=== PATIENT | female | born 1970 | race Caucasian/White ===

== ENCOUNTER → 2016-04-19 | Outpatient (CLI) | payer OTHER ==
[~2016-04-19] MED LIST: LEVO125T4 PO; OMEP20CA9 PO; ONDA4TAB7 SL; ZLF/100 PO
[2016-04-19 18:18] LABS: BASO % 0.3 %; BASO ABS # 0.04 K/uL (0-0.2); COMPLETE YES; EOS % 1.8 %; HEMATOCRIT 42.6 % (37-47); IG% 0.5 %; LYMPH % 24.8 %; LYMPH ABS # 3.68 K/uL (1.2-3.4); MEAN CELL VOLUME 86.2 fL (80-100); MEAN CORPUSCULAR HEMOGLOBIN 28.7 pg (25-34); MEAN CORPUSCULAR HGB CONC 33.3 g/dl (32-36); MEAN PLATELET VOLUME 11.8 fL (7.4-10.4); MONO % 4.6 %; PLATELET COUNT 303 K/uL (130-400); RED BLOOD COUNT 4.94 M/uL (4.2-5.4); WHITE BLOOD COUNT 14.84 K/uL (4.8-10.8)
[2016-04-19 18:29] LABS: ALT/SGPT 35 U/L (12-78); BLOOD UREA NITROGEN 13 mg/dl (7-18); BUN/CREATININE RATIO 14.2 (10-20); C-REACTIVE PROTEIN 0.35 mg/dl (0-0.29); CALCIUM 8.8 mg/dl (8.5-10.1); CARBON DIOXIDE 23 mmol/L (21-32); CHLORIDE 108 mmol/L (98-107); CREATININE 0.88 mg/dl (0.60-1.20); GLUCOSE 91 mg/dl (70-99); POTASSIUM 4.2 mmol/L (3.5-5.1); SODIUM 140 mmol/L (136-145)
[2016-04-19 18:39] LABS: ALB/GLOB RATIO 1.1 (0.9-2); ALKALINE PHOSPHATASE 78 U/L (45-117); AST/SGOT 20 U/L (15-37); RHEUMATOID FACTOR < 10.0 U/mL (0-15)
[2016-04-19 19:49] LABS: LYME DISEASE AB IGG NEG (NEG); LYME DISEASE AB IGM NEG (NEG)
[2016-04-24 12:52] LABS: ANA TITER 1:40 TITER (<1:40)
== END | disposition home or self-care (01) ==
LOC: C.LABBFT 12:56
PROVIDERS: ATTEND Internal Medicine
DX: M25.50 Pain in unspecified joint (principal)

== ENCOUNTER → 2016-05-02 | Outpatient (CLI) | payer OTHER ==
[2016-05-02 17:29] LABS: BASO % 0.3 %; BASO ABS # 0.05 K/uL (0-0.2); COMPLETE YES; EOS % 1.7 %; HEMATOCRIT 41.1 % (37-47); IG% 0.3 %; LYMPH % 25.6 %; LYMPH ABS # 3.82 K/uL (1.2-3.4); MEAN CELL VOLUME 86.5 fL (80-100); MEAN CORPUSCULAR HEMOGLOBIN 29.9 pg (25-34); MEAN CORPUSCULAR HGB CONC 34.5 g/dl (32-36); MEAN PLATELET VOLUME 11.9 fL (7.4-10.4); MONO % 5.5 %; NEUT % 66.6 %; PLATELET COUNT 309 K/uL (130-400); RED BLOOD COUNT 4.75 M/uL (4.2-5.4)
[2016-05-02 18:10] LABS: URINE APPEARANCE CLEAR (CLEAR); URINE BILIRUBIN NEG (NEG); URINE COLOR DK YELLOW; URINE EPITHELIAL CELL AUTO >30 /lpf (0-5); URINE NITRITE NEG (NEG); URINE SPECIFIC GRAVITY 1.024 (1.000-1.030); UROBILINOGEN NEG (NEG)
[2016-05-02 18:14] LABS: MANUAL MICROSCOPIC REQUIRED? NO; REVIEW REQ? NO
== END | disposition home or self-care (01) ==
LOC: C.LABBFT 14:47
PROVIDERS: ATTEND Internal Medicine
DX: R79.9 Abnormal finding of blood chemistry, unspecified (principal)

== ENCOUNTER → 2016-05-07 | Outpatient (CLI) | payer OTHER ==
[2016-05-07 12:50] LABS: BASO % 0.2 %; BASO ABS # 0.03 K/uL (0-0.2); EOS % 1.9 %; HEMATOCRIT 44.1 % (37-47); IG% 0.4 %; LYMPH % 19.6 %; LYMPH ABS # 2.63 K/uL (1.2-3.4); MEAN CELL VOLUME 86.5 fL (80-100); MEAN CORPUSCULAR HEMOGLOBIN 28.6 pg (25-34); MEAN CORPUSCULAR HGB CONC 33.1 g/dl (32-36); MEAN PLATELET VOLUME 11.5 fL (7.4-10.4); MONO % 6.3 %; NEUT % 71.6 %; PLATELET COUNT 279 K/uL (130-400)
[2016-05-07 13:25] LABS: COMPLETE YES
== END | disposition home or self-care (01) ==
LOC: C.LABBFT 07:36
PROVIDERS: ATTEND Internal Medicine
DX: D72.829 Elevated white blood cell count, unspecified (principal)

== ENCOUNTER → 2016-06-07 | Outpatient (CLI) | payer OTHER ==
[2016-06-07 17:17] LABS: BASO % 0.3 %; BASO ABS # 0.04 K/uL (0-0.2); COMPLETE YES; HEMATOCRIT 42.8 % (37-47); IG% 0.3 %; LYMPH ABS # 3.31 K/uL (1.2-3.4); MEAN CELL VOLUME 85.8 fL (80-100); MEAN CORPUSCULAR HEMOGLOBIN 29.5 pg (25-34); MEAN CORPUSCULAR HGB CONC 34.3 g/dl (32-36); MEAN PLATELET VOLUME 11.7 fL (7.4-10.4); MONO % 6.4 %; PLATELET COUNT 317 K/uL (130-400); RED BLOOD COUNT 4.99 M/uL (4.2-5.4); WHITE BLOOD COUNT 12.72 K/uL (4.8-10.8)
[2016-06-07 17:38] LABS: THYROID STIMULATING HORMONE 5.15 uIu/ml (0.300-4.500)
== END | disposition home or self-care (01) ==
LOC: C.LABBFT 12:47
PROVIDERS: ATTEND Internal Medicine
DX: R79.9 Abnormal finding of blood chemistry, unspecified (principal); E03.9 Hypothyroidism, unspecified

== ENCOUNTER 2017-02-26 19:28 | Emergency (ER) | payer OTHER ==
[~2017-02-26] VITALS: Ht 167.6 cm; Wt 91.2 kg
[~2017-02-26 19:28] MED LIST changes: -LEVO125T4 PO; +LEVO125T5 PO; -OMEP20CA9 PO; -ZLF/100 PO
[2017-02-26 19:32] VITALS: TEMP 36.6; Ht 167.6 cm; Wt 91.2 kg
--- NOTE | 2017-02-26 19:54 | EMERGENCY ROOM VISIT NOTE ---
History Report prepared by Anita: Joaquin Cisse Under the Supervision of: Dr. Dami Alvarenga M.D. First contact with patient: 19:37 Chief Complaint: FLANK PAIN Stated Complaint: BACK PAIN, RED HAND NUMBNESS History of Present Illness The patient is a 47 year old female who presents to the Emergency Room with complaints of intermittent left sided flank pain that began this morning. She has a history of hypothyroid disease and is not currently taking medications for it. She is currently on Zoloft. Last week, the patient was started on an antibiotic and Prednisone which she finished yesterday morning for sinus congestion and a cough. At that time, she had some flank pain, but thought it was from her not being able to move her bowels secondary to her medications. Her pain eventually went away until this morning. Although she is now able to move her bowels, her pain still persisted. Along with this, she noticed that her right hand is discolored. She denies any trauma or injury to any area of her body. She denies any fevers, rhinorrhea, post nasal drip sore throat, chest pain, shortness of breath, vomiting, diarrhea, numbness or weakness to her legs , hand pain, or pain associated with breathing. She notes that she has some bilateral shoulder and arm weakness and aches. She has chronic headaches. She denies any chance for and states she has a Mirena inserted. She has been keeping up with her fluids. Source of History: patient Onset: this morning Position: other (Left flank) Symptom Intensity: moderate Quality: ache Timing: intermittent Associated Symptoms: + headache, + cough, + weakness (bilateral shoulder and arm), No fevers, No chest pain, No SOB, No vomiting, No abdominal pain, No diarrhea, No urinary symptoms Note: She has some right hand discoloration and numbness. She denies any trauma or injury. Review of Systems See HPI for pertinent positives & negatives. A total of 10 systems reviewed and were otherwise negative. Past Medical & Surgical Medical Problems: (1) Cervical cancer Old medical records were reviewed. Nurse's notes were reviewed and I agree with. Family History Cancer Diabetes mellitus Heart disease Hypertension Social History Smoking Status: Never Smoker Alcohol Use: occasionally Drug Use: none Marital Status: single Occupation Status: employed Current/Historical Medications Scheduled Cholecalciferol (Vitamin D3), 2 CAP PO DAILY Cyanocobalamin (Vitamin B-12), 1 TAB PO DAILY Levothyroxine Sodium (Synthroid), 1 TAB PO DAILY Omeprazole (Prilosec), 20 MG PO DAILY Sertraline HCl (Sertraline HCl), 100 MG PO DAILY Scheduled PRN Triamcinolone Acetonide (Nasal (Nasacort Allergy 24Hr), 1 SPRAY NA DAILY PRN for Nasal Congestion Allergies Coded Allergies: No Known Allergies (Unverified , 03/02/06) Physical Exam Vital Signs Date Time Temp Pulse Resp B/P (MAP) Pulse Ox O2 Delivery O2 Flow Rate FiO2 02/26/17 22:41 70 16 156/101 97 02/26/17 22:35 70 16 156/101 97 Room Air 02/26/17 21:24 75 16 160/100 94 Room Air 02/26/17 20:55 75 18 149/94 93 Room Air 02/26/17 19:32 36.6 83 20 177/98 95 Room Air Physical Exam General: Non-ill appearing middle aged female in no acute distress. HEENT: Normal cephalic atraumatic. Pupils are equal round and reactive to light. Extraocular movements are intact. Oropharynx is pink with moist mucous membranes. No swelling of the mouth lips or tongue. Neck: Supple with a midline trachea. No meningeal signs or stiffness, no JVD or bruits. No Stridor. Chest: Clear to auscultation bilaterally. No wheezes or rhonchi. No increased work of breathing. Heart: regular rate and rhythm. Abdomen: Soft nontender, nondistended without rebound guarding or rigidity. Extremities: There is a bruise to the dorsal aspect of the right hand. No redness or warmth. Full ROM. No numbness or weakness. Good capillary refill. No calf tenderness or assymetry Spine/Back. Tenderness to palpation in the left lower rib area. No rash. Skin: Good turgor without rashes. Neurologic exam: Cranial nerves two through 12 are intact. Motor and sensation are intact and symmetrical throughout. Medical Decision & Procedures ER Provider Diagnostic Interpretation: Radiology results as stated below per my review and radiologist interpretation: CHEST ONE VIEW PORTABLE HISTORY: 47 years-old Female CHEST PAIN acute atypical chest pain COMPARISON: None available TECHNIQUE: Portable upright AP view of the chest FINDINGS: Cardiomediastinal and hilar silhouettes are within normal limits. No pneumothorax, pleural effusion, focal airspace consolidation or overt pulmonary edema. Bones of the chest appear grossly intact. Dextroscoliosis of the thoracic spine. IMPRESSION: No acute process. The above report was generated using voice recognition software. It may contain grammatical, syntax or spelling errors. Electronically signed by: Jay Thayer M.D. 02/26/2017 8:59 PM Dictated Date/Time: 02/26/2017 8:58 PM ABD/PELVIS WITHOUT FOR STONE HISTORY: 47 years-old Female eval for left flank pain acute left-sided flank pain COMPARISON: Lumbar spine radiographs 10/28/2007 TECHNIQUE: Multiple axial CT images of the abdomen and pelvis were obtained without contrast. A dose lowering technique was used consistent with the principals of [place]. FINDINGS: Groundglass opacities of the lung bases are noted with pleural-based 3 mm nodules right lung base seen on image 27 series 3, likely benign. These findings suggest atelectasis and/or mild pneumonitis. No pneumatosis or pneumoperitoneum. Imaged inferior cardiac chambers are unremarkable with trace pericardial effusion. Gallbladder is contracted. The liver, spleen, and pancreas are unremarkable. There are peripheral calcifications noted involving the bilateral adrenal glands. 1.3 x 1.0 cm lesion of the left adrenal gland demonstrating macroscopic fat suggests adrenal myolipoma, image 86 series 3. Low attenuating lesion of the superior pole right kidney, 4.9 x 4.3 cm suggests simple renal cyst. Bilateral kidneys and ureters are otherwise unremarkable. No renal calculi or hydronephrosis. The urinary bladder is within normal limits. Intrauterine device is noted within the central uterus which appears to be in satisfactory positioning. 1.7 cm cystic structure of the left adnexum suggests dominant follicle. There is mild atherosclerosis of the aorta. No pathologic adenopathy. Small duodenal diverticulum. No bowel obstruction or focal bowel wall thickening identified. Minimal colonic diverticulosis without diverticulitis. Normal appendix. There are multiple small ventral abdominal wall fat filled hernias which are supraumbilical and periumbilical, largest of which demonstrates diastases of approximately 1.5 cm. Diastases recti. Soft tissues are unremarkable. Mild degenerative changes of the SI joints bilaterally. Multilevel intervertebral disc space narrowing and facet arthropathy of the lower lumbar spine. IMPRESSION: 1. No acute intra-abdominal or intrapelvic abnormality identified, specifically no renal calculi or hydronephrosis. 2. Normal appendix. 3. Symmetric peripheral calcification of the bilateral adrenal glands suggests prior adrenal hemorrhage or infection. 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 4. Minimal colonic diverticulosis without diverticulitis. 5. IUD in situ. The above report was generated using voice recognition software. It may contain grammatical, syntax or spelling errors. Electronically signed by: Jay Thayer M.D. 02/26/2017 9:22 PM Dictated Date/Time: 02/26/2017 9:12 PM Laboratory Results 02/26/17 19:55 Red Blood Count 4.94, Mean Corpuscular Volume 85.0, Mean Corpuscular Hemoglobin 29.4, Mean Corpuscular Hemoglobin Concent 34.5, Mean Platelet Volume 10.0, Neutrophils (%) (Auto) 67.7, Lymphocytes (%) (Auto) 24.4, Monocytes (%) (Auto) 5.0, Eosinophils (%) (Auto) 1.9, Basophils (%) (Auto) 0.4, Neutrophils # (Auto) 12.11, Lymphocytes # (Auto) 4.37, Monocytes # (Auto) 0.90, Eosinophils # (Auto) 0.34, Basophils # (Auto) 0.08 02/26/17 19:55 Test 02/26/17 19:55 White Blood Count 17.91 K/uL (4.8-10.8) Red Blood Count 4.94 M/uL (4.2-5.4) Hemoglobin 14.5 g/dL (12.0-16.0) Hematocrit 42.0 % (37-47) Mean Corpuscular Volume 85.0 fL (80-100) Mean Corpuscular Hemoglobin 29.4 pg (25-34) Mean Corpuscular Hemoglobin Concent 34.5 g/dl (32-36) Platelet Count 298 K/uL (130-400) Mean Platelet Volume 10.0 fL (7.4-10.4) Neutrophils (%) (Auto) 67.7 % Lymphocytes (%) (Auto) 24.4 % Monocytes (%) (Auto) 5.0 % Eosinophils (%) (Auto) 1.9 % Basophils (%) (Auto) 0.4 % Neutrophils # (Auto) 12.11 K/uL (1.4-6.5) Lymphocytes # (Auto) 4.37 K/uL (1.2-3.4) Monocytes # (Auto) 0.90 K/uL (0.11-0.59) Eosinophils # (Auto) 0.34 K/uL (0-0.5) Basophils # (Auto) 0.08 K/uL (0-0.2) RDW Standard Deviation 42.3 fL (36.4-46.3) RDW Coefficient of Variation 13.8 % (11.5-14.5) Immature Granulocyte % (Auto) 0.6 % Immature Granulocyte # (Auto) 0.11 K/uL (0.00-0.02) Prothrombin Time 9.9 SECONDS (9.0-12.0) Prothromb Time International Ratio 0.9 (0.9-1.1) Activated Partial Thromboplast Time 28.1 SECONDS (21.0-31.0) Partial Thromboplastin Ratio 1.1 D-Dimer 340 ug/L FEU (0-500) Urine Color YELLOW Urine Appearance CLEAR (CLEAR) Urine pH 5.0 (4.5-7.5) Urine Specific [place] 1.024 (1.000-1.030) Urine Protein NEG (NEG) Urine Glucose (UA) NEG (NEG) Urine Ketones NEG (NEG) Urine Occult Blood NEG (NEG) Urine Nitrite NEG (NEG) Urine Bilirubin NEG (NEG) Urine Urobilinogen NEG (NEG) Urine Leukocyte Esterase TRACE (NEG) Urine WBC (Auto) 1-5 /hpf (0-5) Urine RBC (Auto) 0-4 /hpf (0-4) Urine Hyaline Casts (Auto) 1-5 /lpf (0-5) Urine Epithelial Cells (Auto) >30 /lpf (0-5) Urine Bacteria (Auto) NEG (NEG) Urine Test NEG (NEG) Anion Gap 8.0 mmol/L (3-11) Est Creatinine Clear Calc Drug Dose 59.7 ml/min Estimated GFR () 55.7 Estimated GFR (Non- 48.0 BUN/Creatinine Ratio 15.7 (10-20) Calcium Level 9.0 mg/dl (8.5-10.1) Total Bilirubin 0.5 mg/dl (0.2-1) Direct Bilirubin < 0.1 mg/dl (0-0.2) Aspartate Amino Transf (AST/SGOT) 32 U/L (15-37) Alanine Aminotransferase (ALT/SGPT) 41 U/L (12-78) Alkaline Phosphatase 88 U/L (45-117) Total Creatine Kinase 771 U/L (26-192) Creatine Kinase MB 10.8 ng/ml (0.5-3.6) Creatine Kinase MB Ratio 1.4 (0-3.0) Total Protein 7.8 gm/dl (6.4-8.2) Albumin 3.9 gm/dl (3.4-5.0) Lipase 232 U/L (73-393) Thyroid Stimulating Hormone (TSH) 246.000 uIu/ml (0.300-4.500) Laboratory studies as stated above per my review. Medications Administered Medications (Trade) Dose Ordered Sig/Red Route Start Time Stop Time Status Last Admin Dose Admin Levothyroxine Sodium (Synthroid Tab) 150 mcg ONE STAT PO 02/26/17 22:18 02/26/17 22:20 DC 02/26/17 22:35 150 MCG ECG Indication: back/shoulder pain Rate (beats per minute): 77 Rhythm: normal sinus Findings: other (Nonspecific T-wave abnormalities, low voltage) Comparison ECG Date: no prior available ED Course 1936: Past medical records reviewed. The patient was evaluated in room C1, and a complete history and physical examination were performed. 2055: I reassessed the patient at this time. She is resting comfortably. I ordered a CT abdomen for a kidney stone rule out. 2102: She is now at radiology. 2206: I spoke with Lyn Jernigan NP of Endocrinology at this time. She will speak with Dr. Magana of Endocrinology who will call me back. 2210: I spoke with Dr. Magana at this time about the patient. They recommended starting the patient back on her hypothyroid medications. 2220: Upon reevaluation, the patient is resting. I discussed the results and treatment plan with her. She verbalized agreement of the treatment plan. The patient was discharged home. Medical Decision Differentials include, but are not limited to; musculoskeletal pain, kidney stone, infection, PE, pneumonia, UTI, or hematologic process. This patient comes in as described above. she has several complaints. she has a bruise on her right hand without any injury does not cause any pain weakness. She also has pain along her left posterior ribs without rash. She has had some sinus type symptoms. No fever or chills. She's had a mild cough and congestion. IV access was established and she obtained a chest x-ray as well as also blood testing and urinalysis and culture. She was reassessed frequently. Her d-dimer was within normal limits and in the low pretest probability setting make highly unlikely. Chest x-ray does not show any acute findings. EKG does not show any definite ischemic changes. White count is elevated however this may be due to the recent prednisone. She's had nothing else to suggest infection. The rest of her CBC was unremarkable. The bruise on her hand may also be from prednisone. She has no numbness or weakness or anything to suggest compartment syndrome or infection in the hand. Urinalysis was obtained does not suggest UTI or pyelonephritis. Clinically she does not have findings suggest pyelonephritis.. Her blood work came back significantly abnormal for a TSH is markedly elevated at 246. Her CK is mildly elevated and a creatinine and BUN mildly elevated which could go along with severe hypothyroidism. Also her EKG is low voltage also to go along with this. She appears to be stable otherwise., She has nothing to suggest that she has myxedema coma or any unstable vital signs. Given the elevation of TSH I did discuss the case with Dr. Santamaria, and he recommended starting her back on her Synthroid. She was at 150 g doctor Hina said for the first week she could take it every other day and then once a day. I explained this to the patient She should follow-up with her doctor this week for recheck and drink plenty of fluids. She should return if : worsening of symptoms, any new problems or concerns. The patient and her was happy with plan and she was discharged Medication Reconcilliation Current Medication List: was personally reviewed by me Blood Pressure Screening Patient's blood pressure: Elevated blood pressure Blood pressure disposition: Referred to PCP Consults Time Called: 2204 Consulting Physician: Lyn Jernigan APPOINTMENT CLERK - Endocrinology Returned Call: [phone] We discussed the patient's case. She will speak with Dr. Magana of Endocrinology who will call me back. Additional Consults: Time Called: 2210 Consulted Physician: Dr. Magana - Endocrinology Returned Call: 2210 Additional Comments: We discussed the patient's case. He believes that it is her hypothyroid disease and recommends that she be restarted on her medications. Impression Primary Impression: Weakness Additional Impressions: Hypothyroid Ecchymosis Scribe Attestation The scribe's documentation has been prepared under my direction and personally reviewed by me in its entirety. I confirm that the note above accurately reflects all work, treatment, procedures, and medical decision making performed by me. Departure Information Dispostion Home / Self-Care Prescriptions Levothyroxine Sodium (SYNTHROID) 150 Mcg Tab 1 TAB PO DAILY for 30 Days, #30 TAB 0 Refills Prov: Dami Alvarenga M.D. 02/26/17 Referrals Everett Coates M.D. (PCP) Forms HOME CARE DOCUMENTATION FORM, IMPORTANT VISIT INFORMATION Patient Instructions My [facility] Additional Instructions Rest. Restart your Synthroid 150 mcg once a day. For the first week take it every other day Return to the ER if: Worsening of symptoms, shortness of breath, fever or chills , any new problems or concerns Follow-up with your doctor this week for recheck Problem Qualifiers
[2017-02-26] MEDS ORDERED: TRIA1SPR4 (20:00)
[2017-02-26] MEDS ORDERED: CYAN50TA2 PO (20:00)
[2017-02-26] MEDS ORDERED: CHOL2000 PO (20:00)
[2017-02-26 20:12] LABS: BASO % 0.4 %; BASO ABS # 0.08 K/uL (0-0.2); COMPLETE YES; EOS % 1.9 %; IG% 0.6 %; LYMPH % 24.4 %; LYMPH ABS # 4.37 K/uL (1.2-3.4); MEAN CORPUSCULAR HEMOGLOBIN 29.4 pg (25-34); MEAN CORPUSCULAR HGB CONC 34.5 g/dl (32-36); NEUT % 67.7 %; PLATELET COUNT 298 K/uL (130-400); RED BLOOD COUNT 4.94 M/uL (4.2-5.4); WHITE BLOOD COUNT 17.91 K/uL (4.8-10.8)
[2017-02-26 20:22] LABS: INR 0.9 (0.9-1.1); PARTIAL THROMBOPLASTIN RATIO 1.1; PROTHROMBIN TIME (PATIENT) 9.9 SECONDS (9.0-12.0)
[2017-02-26 20:33] LABS: URINE APPEARANCE CLEAR (CLEAR); URINE BILIRUBIN NEG (NEG); URINE COLOR YELLOW; URINE EPITHELIAL CELL AUTO >30 /lpf (0-5); URINE NITRITE NEG (NEG); URINE SPECIFIC GRAVITY 1.024 (1.000-1.030); UROBILINOGEN NEG (NEG)
[2017-02-26 20:40] LABS: MANUAL MICROSCOPIC REQUIRED? NO; REVIEW REQ? NO
--- NOTE | 2017-02-26 21:01 | DIAGNOSTIC IMAGING REPORT ---
CHEST ONE VIEW PORTABLE HISTORY: 47 years-old Female CHEST PAIN acute atypical chest pain COMPARISON: None available TECHNIQUE: Portable upright AP view of the chest FINDINGS: Cardiomediastinal and hilar silhouettes are within normal limits. No pneumothorax, pleural effusion, focal airspace consolidation or overt pulmonary edema. Bones of the chest appear grossly intact. Dextroscoliosis of the thoracic spine. IMPRESSION: No acute process. The above report was generated using voice recognition software. It may contain grammatical, syntax or spelling errors. Electronically signed by: Jay Thayer M.D. 02/26/2017 8:59 PM Dictated Date/Time: 02/26/2017 8:58 PM
--- NOTE | 2017-02-26 21:23 | DIAGNOSTIC IMAGING REPORT ---
ABD/PELVIS WITHOUT FOR STONE HISTORY: 47 years-old Female eval for left flank pain acute left-sided flank pain COMPARISON: Lumbar spine radiographs 10/28/2007 TECHNIQUE: Multiple axial CT images of the abdomen and pelvis were obtained without contrast. A dose lowering technique was used consistent with the principals of [place]. FINDINGS: Groundglass opacities of the lung bases are noted with pleural-based 3 mm nodules right lung base seen on image 27 series 3, likely benign. These findings suggest atelectasis and/or mild pneumonitis. No pneumatosis or pneumoperitoneum. Imaged inferior cardiac chambers are unremarkable with trace pericardial effusion. Gallbladder is contracted. The liver, spleen, and pancreas are unremarkable. There are peripheral calcifications noted involving the bilateral adrenal glands. 1.3 x 1.0 cm lesion of the left adrenal gland demonstrating macroscopic fat suggests adrenal myolipoma, image 86 series 3. Low attenuating lesion of the superior pole right kidney, 4.9 x 4.3 cm suggests simple renal cyst. Bilateral kidneys and ureters are otherwise unremarkable. No renal calculi or hydronephrosis. The urinary bladder is within normal limits. Intrauterine device is noted within the central uterus which appears to be in satisfactory positioning. 1.7 cm cystic structure of the left adnexum suggests dominant follicle. There is mild atherosclerosis of the aorta. No pathologic adenopathy. Small duodenal diverticulum. No bowel obstruction or focal bowel wall thickening identified. Minimal colonic diverticulosis without diverticulitis. Normal appendix. There are multiple small ventral abdominal wall fat filled hernias which are supraumbilical and periumbilical, largest of which demonstrates diastases of approximately 1.5 cm. Diastases recti. Soft tissues are unremarkable. Mild degenerative changes of the SI joints bilaterally. Multilevel intervertebral disc space narrowing and facet arthropathy of the lower lumbar spine. IMPRESSION: 1. No acute intra-abdominal or intrapelvic abnormality identified, specifically no renal calculi or hydronephrosis. 2. Normal appendix. 3. Symmetric peripheral calcification of the bilateral adrenal glands suggests prior adrenal hemorrhage or infection. 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 4. Minimal colonic diverticulosis without diverticulitis. 5. IUD in situ. The above report was generated using voice recognition software. It may contain grammatical, syntax or spelling errors. Electronically signed by: Jay Thayer M.D. 02/26/2017 9:22 PM Dictated Date/Time: 02/26/2017 9:12 PM
[2017-02-26 21:29] LABS: ALKALINE PHOSPHATASE 88 U/L (45-117); ALT/SGPT 41 U/L (12-78); BLOOD UREA NITROGEN 21 mg/dl (7-18); BUN/CREATININE RATIO 15.7 (10-20); CARBON DIOXIDE 27 mmol/L (21-32); CHLORIDE 102 mmol/L (98-107); CKMB/CK RATIO 1.4 (0-3.0); CREATININE 1.31 mg/dl (0.60-1.20); GLUCOSE 89 mg/dl (70-99)
[2017-02-26 21:36] LABS: POTASSIUM 3.3 mmol/L (3.5-5.1); SODIUM 137 mmol/L (136-145)
[2017-02-26 21:44] LABS: AST/SGOT 32 U/L (15-37)
[2017-02-26] MEDS ORDERED: OMEP20CA9 PO (21:53)
[2017-02-26] MEDS ORDERED: ZLF/100 PO (21:53)
[2017-02-26] MEDS ORDERED: LEVO150T PO (22:17)
[2017-02-26] MEDS ORDERED: LEVOTHYROXINE 150 MCG TAB PO STA (22:18)
[2017-02-26 22:41] VITALS: BP 156/101; PULSE 70; O2SAT 97
== END 2017-02-26 22:41 | disposition home or self-care (01) ==
LOC: C.EDB 19:29 → C.EDC 22:41
DX: E03.9 Hypothyroidism, unspecified (principal); R53.1 Weakness; R58 Hemorrhage, not elsewhere classified; Z85.41 Personal history of malignant neoplasm of cervix uteri; Z80.9 Family history of malignant neoplasm, unspecified; Z83.3 Family history of diabetes mellitus; Z82.49 Family history of ischemic heart disease and other diseases of the circulatory system; Z79.899 Other long term (current) drug therapy

== ENCOUNTER → 2017-03-27 | Outpatient (CLI) | payer OTHER ==
[~2017-03-27] MED LIST changes: +CHOL2000 PO; +CYAN50TA2 PO; -LEVO125T5 PO; +LEVO150T PO; +OMEP20CA9 PO; -ONDA4TAB7 SL; +TRIA1SPR4; +ZLF/100 PO
== END | disposition home or self-care (01) ==
LOC: C.LABBFT 08:51
PROVIDERS: ATTEND Nurse Practitioner
DX: E03.9 Hypothyroidism, unspecified (principal)

== ENCOUNTER 2017-04-12 15:29 | Emergency (ER) | payer OTHER ==
[~2017-04-12] VITALS: Ht 154.9 cm; Wt 90.1 kg
[2017-04-12 15:32] VITALS: TEMP 36.3; Ht 154.9 cm; Wt 90.1 kg
[2017-04-12] MEDS ORDERED: KETOROLAC TROMETHAMINE 30 MG/ML VIAL IV STA ×2 (15:45→15:52)
[2017-04-12] MEDS ORDERED: SODIUM CHLORIDE 0.9% 1000ML 1,000 ML IV ONE (15:45)
[2017-04-12] MEDS ORDERED: DEXAMETHASONE SOD INJ 4 MG/ML VIAL IV ONE (15:45)
[2017-04-12] MEDS ORDERED: PROCHLORPERAZINE 5 MG/ML 2 ML VIAL IV STA (15:45)
[2017-04-12] MEDS ORDERED: DiphenhydrAMINE HCL 50 MG/ML VIAL IV STA (15:45)
--- NOTE | 2017-04-12 15:52 | EMERGENCY ROOM VISIT NOTE ---
History First contact with patient: 15:37 Chief Complaint: HEADACHE Stated Complaint: MIGRAINED, PAIN SHOOTING ACCROSS SHOULDER History of Present Illness The patient is a 47 year old female who presents to the Emergency Room with complaints of severe migraine headache that has been intermittent for the last 4 days. The patient has tried Sudafed, Excedrin and ibuprofen with minimal relief. She describes it as a sharp, stabbing sensation. She has associated photosensitivity. She has had nausea without vomiting. No recent cough, fever , sore throat or sinus congestion. The patient has a history of migraines, however she says this one was worse. Her Synthroid was recently increased from 150 g to 200 g 2 weeks ago. She is also complaining of a sharp, stabbing sensation between her shoulder blades. She denies any shortness of breath. The history is somewhat limited as the patient is in a fair amount of pain. Review of Systems 10 system review performed and negative unless noted in HPI or below Past Medical/Surgical History Medical Problems: (1) Cervical cancer Migraines, hypothyroidism Family History Cancer Diabetes mellitus Heart disease Hypertension Social History Smoking Status: Never Smoker Alcohol Use: occasionally Drug Use: none Marital Status: single Occupation Status: employed Current/Historical Medications Scheduled Cholecalciferol (Vitamin D3), 2 CAP PO DAILY Esomeprazole Magnesium (Nexium), 20 MG PO DAILY Levothyroxine Sodium (Levothyroxine Sodium), 200 MCG PO DAILY Sertraline HCl (Sertraline HCl), 100 MG PO DAILY Scheduled PRN Triamcinolone Acetonide (Nasal (Nasacort Allergy 24Hr), 1 SPRAY NA DAILY PRN for Nasal Congestion Physical Exam Vital Signs Date Time Temp Pulse Resp B/P (MAP) Pulse Ox O2 Delivery O2 Flow Rate FiO2 04/12/17 17:11 78 18 161/99 93 Room Air 04/12/17 16:44 78 18 178/98 96 Room Air 04/12/17 16:14 80 04/12/17 15:32 36.3 74 20 206/122 94 Room Air Physical Exam GENERAL: 47-year-old female, in significant pain,, SKIN: The skin was without rashes, erythema, edema, or bruising. HEAD: Normocephalic atraumatic. EARS: External auditory canals clear, tympanic membranes pearly perez without erythema or effusion bilaterally. EYES: Pupils equal round and reactive to light and accommodation. Conjunctivae without injection, sclerae without icterus. Extraocular movements intact. MOUTH: Mucous membranes fairly dry Tonsils are not enlarged. Pharynx without erythema or exudate. Uvula midline. Airway patent. Tongue does not deviate. NECK: Supple without nuchal rigidity. No lymphadenopathy. Cervical spine is nontender. No JVD. HEART: Regular rate and rhythm without murmurs gallops or rubs. LUNGS: Clear to auscultation bilaterally without wheezes, rales or rhonchi. No accessory muscle use. ABDOMEN: Positive bowel sounds x 4.Soft, MUSCULOSKELETAL: No muscle atrophy, erythema, or edema noted. Strength 5/5 throughout. NEURO: Patient was alert and oriented to person place and time. Cerebellar function intact. Cranial nerves grossly intact. Normal sensation to touch. No focal neurological deficits. Medical Decision & Procedures ER Provider Diagnostic Interpretation: CXR IMPRESSION: 1. No acute cardiopulmonary disease. Electronically signed by: Steve Mayer M.D. 04/12/2017 5:04 PM Dictated Date/Time: 04/12/2017 5:03 PM The status of this report is Signed. Draft = Not yet reviewed or approved by Radiologist. CT head without contrast IMPRESSION: 1. No acute intracranial abnormality. Electronically signed by: Steve Mayer M.D. 04/12/2017 4:43 PM Dictated Date/Time: 04/12/2017 4:41 PM The status of this report is Signed. Draft = Not yet reviewed or approved by Radiologist. Signed = Reviewed and approved by Radiologist. <AttendingPhy></AttendingPhy> <FamilyPhy>Everett Coates M.D.</FamilyPhy > <PrimaryPhy>Everett Coates M.D.</PrimaryPhy> <UnitNumber>[id number]</ UnitNumber> <VisitNumber>[id number]</VisitNumber> <PatientName>ZION BURNS</PatientName> <DateOfBirth>1970</DateOfBirth> <Location>[facility] </Location> <ServiceDate>04/12/17</ServiceDate> <MNE>ESINDI</MNE> <OrderingPhy> Radha Fleming PA-C</OrderingPhy> <OrderingPhyMNE>f rep ord dr west</ OrderingPhyMNE> <DictatingPhyMNE>f rep dict dr west</DictatingPhyMNE> <CCListMNE> f rep ct mne</CCListMNE> <AdmittingPhyMNE>f pt admit dr west</AdmittingPhyMNE> < AttendingPhyMNE>f pt attend dr west</AttendingPhyMNE> <ConsultingPhyMNE>f pt consult dr west</ConsultingPhyMNE> <FamilyPhyMNE>f pt fam dr west</FamilyPhyMNE> <OtherPhyMNE>f pt other dr west</OtherPhyMNE> < PrimaryPhyMNE>f pt prim care dr west</PrimaryPhyMNE> <ReferringPhyMNE>f pt referring dr west</ReferringPhyMNE> Laboratory Results 04/12/17 16:06 Red Blood Count 4.81, Mean Corpuscular Volume 85.2, Mean Corpuscular Hemoglobin 29.1, Mean Corpuscular Hemoglobin Concent 34.1, Mean Platelet Volume 11.1, Neutrophils (%) (Auto) 74.1, Lymphocytes (%) (Auto) 16.9, Monocytes (%) (Auto) 6.1, Eosinophils (%) (Auto) 2.0, Basophils (%) (Auto) 0.4, Neutrophils # (Auto) 11.23, Lymphocytes # (Auto) 2.56, Monocytes # (Auto) 0.92, Eosinophils # (Auto) 0.30, Basophils # (Auto) 0.06 04/12/17 16:06 Test 04/12/17 16:06 04/12/17 17:12 04/12/17 17:58 White Blood Count 15.14 K/uL (4.8-10.8) Red Blood Count 4.81 M/uL (4.2-5.4) Hemoglobin 14.0 g/dL (12.0-16.0) Hematocrit 41.0 % (37-47) Mean Corpuscular Volume 85.2 fL (80-100) Mean Corpuscular Hemoglobin 29.1 pg (25-34) Mean Corpuscular Hemoglobin Concent 34.1 g/dl (32-36) Platelet Count 261 K/uL (130-400) Mean Platelet Volume 11.1 fL (7.4-10.4) Neutrophils (%) (Auto) 74.1 % Lymphocytes (%) (Auto) 16.9 % Monocytes (%) (Auto) 6.1 % Eosinophils (%) (Auto) 2.0 % Basophils (%) (Auto) 0.4 % Neutrophils # (Auto) 11.23 K/uL (1.4-6.5) Lymphocytes # (Auto) 2.56 K/uL (1.2-3.4) Monocytes # (Auto) 0.92 K/uL (0.11-0.59) Eosinophils # (Auto) 0.30 K/uL (0-0.5) Basophils # (Auto) 0.06 K/uL (0-0.2) RDW Standard Deviation 42.1 fL (36.4-46.3) RDW Coefficient of Variation 13.6 % (11.5-14.5) Immature Granulocyte % (Auto) 0.5 % Immature Granulocyte # (Auto) 0.07 K/uL (0.00-0.02) Anion Gap 8.0 mmol/L (3-11) Est Creatinine Clear Calc Drug Dose 83.7 ml/min Estimated GFR () 95.3 Estimated GFR (Non- 82.2 BUN/Creatinine Ratio 16.8 (10-20) Calcium Level 8.9 mg/dl (8.5-10.1) Total Bilirubin 0.5 mg/dl (0.2-1) Aspartate Amino Transf (AST/SGOT) 25 U/L (15-37) Alanine Aminotransferase (ALT/SGPT) 33 U/L (12-78) Alkaline Phosphatase 71 U/L (45-117) Total Creatine Kinase 146 U/L (26-192) Creatine Kinase MB 2.4 ng/ml (0.5-3.6) Creatine Kinase MB Ratio 1.6 (0-3.0) Troponin I < 0.015 ng/ml (0-0.045) Total Protein 7.9 gm/dl (6.4-8.2) Albumin 4.0 gm/dl (3.4-5.0) Globulin 3.9 gm/dl (2.5-4.0) Albumin/Globulin Ratio 1.0 (0.9-2) Thyroid Stimulating Hormone (TSH) 2.300 uIu/ml (0.300-4.500) Chemistry Specimen Hemolysis Urine Color YELLOW Urine Appearance CLOUDY (CLEAR) Urine pH 6.0 (4.5-7.5) Urine Specific [place] 1.012 (1.000-1.030) Urine Protein NEG (NEG) Urine Glucose (UA) NEG (NEG) Urine Ketones NEG (NEG) Urine Occult Blood NEG (NEG) Urine Nitrite NEG (NEG) Urine Bilirubin NEG (NEG) Urine Urobilinogen NEG (NEG) Urine Leukocyte Esterase NEG (NEG) Urine WBC (Auto) 1-5 /hpf (0-5) Urine RBC (Auto) 5-10 /hpf (0-4) Urine Hyaline Casts (Auto) 1-5 /lpf (0-5) Urine Epithelial Cells (Auto) >30 /lpf (0-5) Urine Bacteria (Auto) NEG (NEG) Urine Test NEG (NEG) Erythrocyte Sedimentation Rate 17 mm/hr (0-21) D-Dimer 390 ug/L FEU (0-500) C-Reactive Protein < 0.29 mg/dl (0-0.29) Medications Administered Medications (Trade) Dose Ordered Sig/Red Route Start Time Stop Time Status Last Admin Dose Admin Diphenhydramine HCl (Benadryl Inj) 25 mg NOW STAT IV 04/12/17 15:45 04/12/17 15:48 DC 04/12/17 16:23 25 MG Ketorolac Tromethamine (Toradol Inj) 30 mg NOW STAT IV 04/12/17 15:45 04/12/17 15:48 DC 04/12/17 16:23 30 MG Prochlorperazine Edisylate (Compazine Inj) 10 mg NOW STAT IV 04/12/17 15:45 04/12/17 15:48 DC 04/12/17 16:22 10 MG Sodium Chloride 1,000 ml @ 999 mls/hr Q1H1M ONCE IV 04/12/17 15:45 04/12/17 16:45 DC 04/12/17 16:22 999 MLS/HR Dexamethasone Sodium Phosphate (Decadron Inj) 10 mg NOW ONCE IV 04/12/17 15:45 04/12/17 15:49 DC 04/12/17 16:22 10 MG Hydromorphone HCl (Dilaudid Inj) 1 mg ONE ONCE IV 04/12/17 17:00 04/12/17 17:01 DC 04/12/17 17:08 1 MG Acetaminophen/ Butalbital/ Caffeine (Fioricet Tab) 1 tab NOW STAT PO 04/12/17 18:34 04/12/17 18:35 DC 04/12/17 18:42 1 TAB Acetaminophen/ Butalbital/ Caffeine (Fioricet Tab) 1 tab 1834 ONCE PO 04/12/17 18:34 04/12/17 18:35 DC 04/12/17 18:42 1 TAB ECG Indication: other Rate (beats per minute): 74 Rhythm: normal sinus Comparison ECG Date: no prior available ED Course Patient was seen and examined Vital signs including blood pressure were reviewed medications list was verified with patient Labs were obtained, and a saline lock was established An EKG was performed and reviewed by myself. Patient was put on a monitor. She was medicated with Compazine 10 mg, Benadryl 25 mg, Decadron 10 mg and Toradol 30 mg IV. She was also given a liter of normal saline. Imaging was performed and reviewed Upon reevaluation, the patient was still complaining of pain. She was given Dilaudid 1 mg IV. My supervising physician and I thoroughly reviewed her workup. She voiced understanding. We recommended that she undergo a lumbar puncture. She refused. The patient signed out AGAINST MEDICAL ADVICE. Medical Decision Differential includes: Hypertensive emergency, hypertensive urgency, Acute intracranial bleed, trauma, meningitis, encephalitis, increased intracranial pressure, mass or mass effect, facial or dental infection, temporal arteritis, CVA, TIA, acute hypertensive emergency, sinusitis, Acute myocardial infarction , cardiac arrhythmia, anemia, thyroid abnormality, pneumothorax, pneumonia, bronchitis, pericarditis, electrolyte imbalance This patient is a 47-year-old female that presents to the emergency room with a severe migraine headache. She does have a history of migraines, however this migraine is worse. She also has significant hypertension. She denies any history of hypertension. There was concern for hypertensive urgency. She is also complaining of pain in between her shoulder blades. There is also concerned about infectious etiology. Upon further discussion, the patient admits to having some sinus congestion recently. Her workup reveals leukocytosis. To certain degree, the patient has chronic leukocytosis. We did however highly suggestive the patient undergo a lumbar puncture to rule out any infectious etiology or elevated pressure. After approximately 15 minute discussion, the patient refused. She was counseled on the risks of missing a diagnosis such as meningitis. She is willing to take these risks. The patient signed out AGAINST MEDICAL ADVICE. This chart was completed in part utilizing [employer] Speech Voice Recognition software. Attempts were made to minimize the grammatical errors, random word insertions, pronoun errors and incomplete sentences. Any formal questions or concerns about the content, text or information contained within the body of this dictation should be directly addressed to the provider for clarification. Medication Reconcilliation Current Medication List: was personally reviewed by me Blood Pressure Screening Patient's blood pressure: Elevated blood pressure Blood pressure disposition: Referred to PCP Impression Primary Impression: Headache Departure Information Dispostion Against Medical Advice Condition FAIR Referrals Everett Coates M.D. (PCP) Patient Instructions My [facility] Additional Instructions You have been evaluated in the emergency department for a severe headache and high blood pressure. We are not able to completely rule out an infectious cause. It was highly recommended that you undergo a lumbar puncture for further testing. You have refused this recommendation. Continue medications as prescribed. Fioricet 1 tab every 6 hours as needed for headache If you will consider further testing, please return to the emergency department. Otherwise, please follow-up with your primary care physician as soon as possible, particularly to have your blood pressure rechecked.
[2017-04-12 16:21] LABS: BASO % 0.4 %; BASO ABS # 0.06 K/uL (0-0.2); IG# 0.07 K/uL (0.00-0.02); LYMPH % 16.9 %; LYMPH ABS # 2.56 K/uL (1.2-3.4); MEAN CELL VOLUME 85.2 fL (80-100); MEAN CORPUSCULAR HEMOGLOBIN 29.1 pg (25-34); MEAN CORPUSCULAR HGB CONC 34.1 g/dl (32-36); MEAN PLATELET VOLUME 11.1 fL (7.4-10.4); MONO % 6.1 %; MONO ABS # 0.92 K/uL (0.11-0.59); NEUT % 74.1 %; NEUT ABS # 11.23 K/uL (1.4-6.5); PLATELET COUNT 261 K/uL (130-400); RED CELL DISTRIBUTION WIDTH CV 13.6 % (11.5-14.5); RED CELL DISTRIBUTION WIDTH SD 42.1 fL (36.4-46.3); WHITE BLOOD COUNT 15.14 K/uL (4.8-10.8)
--- NOTE | 2017-04-12 16:44 | DIAGNOSTIC IMAGING REPORT ---
HEAD WITHOUT CONTRAST (CT) CLINICAL HISTORY: 47 years-old Female presenting with severe LOYA high BP. TECHNIQUE: Multidetector CT imaging of the head was performed without the use of intravenous contrast. IV contrast: None. A dose lowering technique was used consistent with the principles of ALARA (as low as reasonably achievable). COMPARISON: MR brain from 2012. CT DOSE (mGy.cm): The estimated cumulative dose is 537.48 mGy.cm. FINDINGS: Production Planner topogram: Unremarkable. Ventricles and sulci normal in size. Brain parenchyma normal in appearance with preserved perez-white differentiation. No mass effect or midline shift. No hemorrhage or acute territorial infarct. No extra-axial fluid collection. Paranasal sinuses and mastoid air cells clear. Calvarium intact. IMPRESSION: 1. No acute intracranial abnormality. Electronically signed by: Steve Mayer M.D. 04/12/2017 4:43 PM Dictated Date/Time: 04/12/2017 4:41 PM
[2017-04-12] MEDS ORDERED: HYDROmorphone INJ 1 MG/ML SYR IV ONE (17:00)
--- NOTE | 2017-04-12 17:05 | DIAGNOSTIC IMAGING REPORT ---
CHEST ONE VIEW PORTABLE CLINICAL HISTORY: 47 years-old Female presenting with pain between shoulder blades. TECHNIQUE: Portable upright AP view of the chest was obtained. COMPARISON: 02/26/2017. FINDINGS: Cardiomediastinal silhouette normal. Lungs and pleural spaces clear. Dextroscoliotic curvature of the thoracic spine. Upper abdomen normal. IMPRESSION: 1. No acute cardiopulmonary disease. Electronically signed by: Steve Mayer M.D. 04/12/2017 5:04 PM Dictated Date/Time: 04/12/2017 5:03 PM
[2017-04-12 17:08] LABS: ALKALINE PHOSPHATASE 71 U/L (45-117); ALT/SGPT 33 U/L (12-78); AST/SGOT 25 U/L (15-37); BLOOD UREA NITROGEN 14 mg/dl (7-18); CALCIUM 8.9 mg/dl (8.5-10.1); CARBON DIOXIDE 24 mmol/L (21-32); CKMB 2.4 ng/ml (0.5-3.6); CREATININE 0.84 mg/dl (0.60-1.20); GLUCOSE 90 mg/dl (70-99); POTASSIUM 3.8 mmol/L (3.5-5.1); SODIUM 135 mmol/L (136-145); TOTAL PROTEIN 7.9 gm/dl (6.4-8.2)
[2017-04-12 17:11] VITALS: BP 161/99; PULSE 78; O2SAT 93
[2017-04-12] MEDS ORDERED: LEVO200T6 PO (17:22)
--- NOTE | 2017-04-12 18:01 | EMERGENCY ROOM VISIT NOTE ---
ED Visit Note First contact with patient: 15:37 The patient was seen and examined with Radha Fleming PA-C. I agree with the history, physical and findings. Please see the note for disposition and details. I did evaluate the patient and reviewed her diagnostics. She has an unusual headache. It is not similar to her previous migraines. This is been going on for several days. She has had the other associated symptoms as noted in the PA note. She is feeling better but still has a headache. It has diminished significantly. She has leukocytosis on CBC. Record review indicates a chronic elevation for which she is following with hematology. This makes interpretation for infection difficult. She does not have any focal neurologic findings. I did discuss performing a lumbar puncture with her and her present. I spent a significant time with her answering questions and explaining the procedure. Initially she was in agreement but then declined. She wishes to be discharged. She still has blood work that was pending. An ESR , CRP and d-dimer. The patient was told the labs are still pending but she did not want to wait. She was not altered in any way. I did discuss the risks and the benefits. I also discussed the fact that other etiologies could be at play other than meningitis, encephalitis, pseudotumor etc. She was offered to come back any time if she worsens and agreed to do so. She will follow-up promptly with her primary physician. I gave my usual and customary discussion regarding this issue. The patient has demonstrated no significant defect in the decision-making capacity to make choices. The encounter had a good level of communication with language the patient can easily understand. I feel trust was present and conveyed that our action/intentions were the best interest of the patient. The patient was given all relevant information and reiterated the explained risks and benefits. The patient explained the reasoning for refusing treatment clearly. The patient possesses and expresses a set of values and goals, the ability to communicate and understand, and an ability to reason and deliberate. Despite acting emphatically, attentively and with the utmost patient's the patient declined further treatment. I offered options, negotiated, and explored every reasonable choice. I must respect the patient's autonomy and that they feel that their choices are best for them despite the associated risks of leaving AGAINST MEDICAL ADVICE.
[2017-04-12] MEDS ORDERED: ESOM20CA PO (18:06)
[2017-04-12] MEDS ORDERED: BUTALBITAL/ACETAMIN/CAFFEINE TAB PO STA (18:34)
[2017-04-12] MEDS ORDERED: BUTALBITAL/ACETAMIN/CAFFEINE TAB PO ONE (18:34)
== END 2017-04-12 18:49 | disposition left against medical advice (07) ==
LOC: C.EDB 15:31 → C.EDC 18:49
DX: G43.909 Migraine, unspecified, not intractable, without status migrainosus (principal); D72.829 Elevated white blood cell count, unspecified; I10 Essential (primary) hypertension; Z53.21 Procedure and treatment not carried out due to patient leaving prior to being seen by health care provider; E03.9 Hypothyroidism, unspecified; Z85.41 Personal history of malignant neoplasm of cervix uteri; Z80.9 Family history of malignant neoplasm, unspecified; Z83.3 Family history of diabetes mellitus; Z82.49 Family history of ischemic heart disease and other diseases of the circulatory system

== ENCOUNTER → 2017-04-16 | Outpatient (CLI) | payer OTHER ==
[~2017-04-16] MED LIST changes: -CYAN50TA2 PO; +ESOM20CA PO; -LEVO150T PO; +LEVO200T6 PO; -OMEP20CA9 PO
== END | disposition home or self-care (01) ==
LOC: C.LABBFT 14:08
PROVIDERS: ATTEND Nurse Practitioner
DX: E03.9 Hypothyroidism, unspecified (principal)

== ENCOUNTER → 2017-05-06 | Outpatient (CLI) | payer OTHER ==
--- NOTE | 2017-05-07 07:56 | MAMMOGRAPHY REPORT ---
BILATERAL DIGITAL SCREENING MAMMOGRAM TOMOSYNTHESIS WITH CAD: 05/06/2017 CLINICAL HISTORY: Routine screening. Patient has no complaints. TECHNIQUE: Breast tomosynthesis in addition to standard 2D mammography was performed. Current study was also evaluated with a Computer Aided Detection (CAD) system. COMPARISON: Comparison is made to exams dated: 11/01/2014 mammogram, 04/27/2013 mammogram, 04/21/2012 m ammogram, 04/16/2011 mammogram, and 05/22/2010 mammogram - [facility]. BREAST COMPOSITION: There are scattered areas of fibroglandular density in both breasts. FINDINGS: There is a stable metallic biopsy marker clip in the lower outer anterior right breast. No new suspicious mass, architectural distortion or cluster of suspicious microcalcifications is seen. IMPRESSION: ACR BI-RADS CATEGORY 1: NEGATIVE There is no mammographic evidence of malignancy. A 1 year screening mammogram is recommended. The pa tient will receive written notification of the results. Approximately 10% of breast cancers are not detected with mammography. A negative mammographic report should not delay biopsy if a clinically suggestive mass is present. Reema Rose M.D. ay/:05/06/2017 17:51:03 Putty Remover: Mehreen ALFORD(Sudhir)(M), [facility] letter sent: Normal 1/2 BI-RADS Code: ACR BI-RADS Category 1: Negative
== END | disposition home or self-care (01) ==
LOC: C.MAMM 08:50
PROVIDERS: ATTEND Internal Medicine
DX: Z12.31 Encounter for screening mammogram for malignant neoplasm of breast (principal)

== ENCOUNTER → 2017-07-11 | Outpatient (CLI) | payer OTHER | END | disposition home or self-care (01) | LOC: C.PAPS 18:07 | PROVIDERS: ATTEND Obstetrics & Gynecology | DX: Z01.419 Encounter for gynecological examination (general) (routine) without abnormal findings (principal) ==